=== PATIENT | male | born 1995 ===

== ENCOUNTER 2024-09-28 20:50 | Emergency (ER) | payer OTHER ==
[2024-09-28] MEDS ORDERED: MOTRIN 600 MG ONE (21:11)
[2024-09-28] MEDS ORDERED: TYLENOL EXTRA STRENGTH 500 MG ONE (21:12)
[2024-09-28] MEDS: TYLENOL EXTRA STRENGTH 500 MG PO STA (21:14)
[2024-09-28] MEDS: MOTRIN 600 MG PO ONE (21:14)
--- NOTE | 2024-09-28 21:25 | ERPHSYRPT ---
- History of Present Illness Source: patient Exam Limitations: no limitations Patient Subjective Stated Complaint: pt states that he has had a fever, bodyaches, cough, and diarrhea since yesterday Triage Nursing Assessment: pt ambulated into the er; pt is axo x4; c/o fever; pt states 6/10 generalized body pain; fever of 103.1; c/o diarrhea, denies N/V; wheezing in the ezekiel upper anterior lobes; active bowel sounds in all quads; skin hot, dry, pink; no respiratory distress present; tachycardic Physician History: Patient has flu like symptoms. He has fever chills body aches myalgias. He is had some diarrhea to some nausea. It has been going on for about a day and a half. Nothing makes symptoms better or worse. He is not dehydrated. He is able to keep fluids down.He is not in any respiratory distress. Allergies/Adverse Reactions: poison anthony extract Allergy (Verified 09/28/24 20:59) Swelling Hx Tetanus, Diphtheria Vaccination/Date Given: Yes Hx Influenza Vaccination/Date Given: No Hx Pneumococcal Vaccination/Date Given: No Travel Risk - International Travel Have you traveled outside of the country in past 3 weeks: No - Emerging Infectious Disease Are you exhibiting symptoms associated with any current EIDs: Yes Symptoms: Cough: New Onset, Diarrhea, Fever, Headaches/Body Aches/ - Review of Systems Constitutional: Fever, Chills, Malaise, No Lethargy Eyes: No Symptoms Ears, Nose, & Throat: No Symptoms Respiratory: No Symptoms Cardiac: No Symptoms Abdominal/Gastrointestinal: No Symptoms Skin: No Symptoms Neurological: No Symptoms Psychological: No Symptoms All Other Systems: Reviewed and Negative - Past Medical History Pertinent Past Medical History: Yes Respiratory History: Asthma - Past Surgical History Past Surgical History: No - Social History Smoking Status: Former smoker Exposure to second hand smoke: Yes Drug Use: marijuana - Social Determinants of Health Will the patient participate in the screening: Yes Do you worry about a steady place to live?: No Do you have any problems with any of the following?: No known problems In the past 12 months,have you had to go without utilities?: No Transportation Issues: No Has anyone in your support network made you feel unsafe?: No Have you or anyone in your house had to go w/o enough food: No - Nursing Vital Signs Nursing Vital Signs: Initial Vital Signs Temperature 103.1 F 09/28/24 21:00 Pulse Rate 125 H 09/28/24 21:00 Respiratory Rate 24 09/28/24 21:00 Blood Pressure 132/74 09/28/24 21:00 O2 Sat by Pulse Oximetry 94 L 09/28/24 21:00 Pain Scale Pain Intensity 2 - Physical Exam General Appearance: no apparent distress Eye Exam: PERRL/EOMI ENT Exam: normal ENT inspection Neck Exam: normal inspection, non-tender Respiratory Exam: normal breath sounds Cardiovascular/Chest Exam: normal heart sounds Gastrointestinal/Abdominal Exam: soft, non tender SpO2: 94 Ordered Tests: Active Orders 24 hr Category Date Time Status Respiratory Therapy Assessment DAILY RT 09/28/24 22:14 Active Medication Summary Discontinued Medications Generic Name Dose Route Start Last Admin Trade Name Enriqueta PRN Reason Stop Dose Admin Acetaminophen 1,000 mg 09/28/24 21:06 09/28/24 21:14 Acetaminophen 500 Mg Tablet PO 09/28/24 21:07 1,000 mg STAT STA Administration Acetaminophen Confirm 09/28/24 21:12 Acetaminophen 500 Mg Tablet Administered 09/28/24 21:13 Dose 1,000 mg .ROUTE .STK-MED ONE Albuterol Sulfate 2.5 mg 09/28/24 22:05 09/28/24 22:14 Albuterol Sulfate 2.5 Mg/3 Ml Neb IH 09/28/24 22:06 2.5 mg STAT ONE Administration Albuterol Sulfate Confirm 09/28/24 22:09 Albuterol Sulfate 2.5 Mg/3 Ml Neb Administered 09/28/24 22:10 Dose 2.5 mg IH .STK-MED ONE Ibuprofen 600 mg 09/28/24 21:06 09/28/24 21:14 Ibuprofen 600 Mg Tablet PO 09/28/24 21:07 600 mg STAT ONE Administration Ibuprofen Confirm 09/28/24 21:11 Ibuprofen 600 Mg Tablet Administered 09/28/24 21:12 Dose 600 mg .ROUTE .STK-MED ONE Lab/Rad Data: Laboratory Results 09/28/24 Range/Units 21:20 Influenza Type A Ag POSITIVE A (NEGATIVE) Influenza Type B Ag NEGATIVE (NEGATIVE) RSV (PCR) NEGATIVE (NEGATIVE) SARS-CoV-2 (PCR) NEGATIVE (NEGATIVE) - Progress Progress: unchanged Progress Note: Patient is flu positive. Also on the differential was COVID and RSV and pneumonia. He was a little bit wheezing. I gave him a albuterol nebulizer. It helped significantly. He was feeling much better. At this time I am just going to discharge him home Tylenol Advil and I am going to give him some refills on his albuterol. 09/28/24 23:38 Medical Desision Making - Independent Historian Additional History obtained from: Spouse - Departure Departure Disposition: Home Clinical Impression: Influenza A Condition: Good Critical Care Time: No Referrals: DOCTOR,NO FAMILY [Primary Care Provider] - Follow up/PCP as directed
[2024-09-28 21:50] LABS: INFLUENZA B NEGATIVE (NEGATIVE); RESPIRATORY SYNCTIAL VIRUS NEGATIVE (NEGATIVE); SARS-CoV-2 Xpert Express NEGATIVE (NEGATIVE)
[2024-09-28 21:52] LABS: INFLUENZA A POSITIVE (NEGATIVE)
[2024-09-28] MEDS ORDERED: PROVENTIL 2.5 MG/3 ML NEB IH ONE (22:09)
[2024-09-28] MEDS: PROVENTIL 2.5 MG/3 ML NEB IH ONE (22:14)
[2024-09-28 23:03] VITALS: TEMP 98.8; O2SAT 94
[2024-09-28 23:48] VITALS: BP 134/72; PULSE 113; RESP 16
== END 2024-09-28 23:48 | disposition home or self-care (01) ==
LOC: ED 20:50
DX: J10.1 Influenza due to other identified influenza virus with other respiratory manifestations (principal); R50.9 Fever, unspecified; M79.10 Myalgia, unspecified site; R19.7 Diarrhea, unspecified
CPT/HCPCS: 0241U; 94640; 99283; J7609; A9270-GY